=== PATIENT | female | born 1965 | race Hispanic/Latino ===

== ENCOUNTER 2018-11-17 11:02 | Outpatient (CLI) | payer OTHER ==
--- NOTE | 2018-11-17 11:40 | MMO ---
Bilateral MAMMO Bilat Screen [facility]. CLINICAL HISTORY: Patient is 53 years old and is seen for screening. The patient has no family history of breast cancer. The patient has no personal history of cancer. The patient has a history of right cyst aspiration in September, - benign. VIEWS: The views performed were: bilateral craniocaudal and bilateral mediolateral oblique. FILMS COMPARED: The present examination has been compared to prior imaging studies performed at [facility] on 11/12/2006, 08/05/2012, 08/10/2012, 04/12/2014 and 04/20/2014. This study has been interpreted with the assistance of computer-aided detection. MAMMOGRAM FINDINGS: There are scattered fibroglandular densities. There are no suspicious masses, suspicious calcifications, or new areas of architectural distortion. IMPRESSION: THERE IS NO MAMMOGRAPHIC EVIDENCE OF MALIGNANCY. A ROUTINE FOLLOW-UP MAMMOGRAM IN 1 YEAR IS RECOMMENDED. ACR BI-RADS Category 1 - Negative MAMMOGRAPHY NOTE: 1. A negative mammogram report should not delay a biopsy if a dominant of clinically suspicious mass is present. 2. Approximately 10% to 15% of breast cancers are not detected by mammography. 3. Adenosis and dense breasts may obscure an underlying neoplasm.
== END 2018-11-17 11:03 | disposition home or self-care (01) ==
LOC: SCSMAMMO 11:02
PROVIDERS: ATTEND Family Medicine
DX: Z12.31 Encounter for screening mammogram for malignant neoplasm of breast (principal)
CPT/HCPCS: 77067

== ENCOUNTER 2019-01-04 06:57 | Outpatient (CLI) | payer OTHER ==
--- NOTE | 2019-01-04 07:43 | ULT ---
EXAM: Carotid ultrasound HISTORY: Migraine headaches COMPARISON: None TECHNIQUE: Multiplanar grayscale and color Doppler images were obtained in a carotid ultrasound. Spec tral analysis of the Doppler waveforms were performed. FINDINGS: No significant plaque is visualized in either internal carotid artery. No significant plaque is seen in either common carotid artery. The Doppler waveforms are normal in the visualized vessels. Peak systolic velocity in the right internal carotid artery 92 cm/s. Peak systolic velocity in the right common carotid artery 113 cm/s. The right ICA/CCA ratio is 0.8. Peak systolic velocity in the left internal carotid artery 97 cm/s. Peak systolic velocity in the left common carotid artery 104 cm/s. The left ICA/CCA ratio is 0.9. Both vertebral arteries demonstrate antegrade flow without focal stenosis IMPRESSION: No evidence of hemodynamically significant stenosis.
--- NOTE | 2019-01-04 08:42 | MRI ---
MRI BRAIN WITH AND WITHOUT CONTRAST: DATE: 01/04/2019 HISTORY: 53-year-old female with intracranial arteriovenous malformation Q 27.30 COMPARISON: 12/04/2010 TECHNIQUE: Multiplanar, multisequence MRI of the brain performed pre- and post-IV injection of gadolinium based contrast agent. FINDINGS: There has been no significant interval change in the size of the region of clustered abnormal tiny bl ood vessels centered near the superior edge of the left sylvian fissure, measuring approximately 2.5 x 2 x 2 cm. There are dilated abnormal large blood vessels associated with this, including mildly dilated feeding artery which is a branch of the left middle cerebral artery, and dilated, strongly enhancing draining veins. There is no gliosis associated with this. There is no hemosiderin stain in the brain parenchyma around this AVM. There is no restricted diffusion. No other abnormal intra-axial parenchymal enhancement. No intra-axi al signal abnormality. No mass effect, midline shift, or extra-axial fluid collection. Ventricles are normal in size and configuration. No interval change overall. IMPRESSION: 1) left cerebral arteriovenous malformation. 2) no signs of recent or remote hemorrhage. 3) no interval change overall.
== END 2019-01-04 06:58 | disposition home or self-care (01) ==
LOC: SCSULT 06:57
PROVIDERS: ATTEND Psychiatry & Neurology Neurology
DX: Q28.2 Arteriovenous malformation of cerebral vessels (principal)
CPT/HCPCS: 70553; 93880

== ENCOUNTER 2019-12-27 08:28 | Outpatient (CLI) | payer OTHER ==
--- NOTE | 2019-12-27 09:18 | MMO ---
Bilateral MAMMO Bilat Diag [facility]. CLINICAL HISTORY: Patient is 54 years old and is seen for diagnostic exam,lump or thickening and pain in the right breast. The patient has no family history of breast cancer. The patient has no personal history of cancer. The patient has a history of right cyst aspiration in September, - benign. VIEWS: The views performed were: bilateral craniocaudal with tomosynthesis; bilateral mediolateral oblique with tomosynthesis; and bilateral mediolateral with tomosynthesis. FILMS COMPARED: The present examination has been compared to prior imaging studies performed at [facility] on 11/17/2018, and at [facility] on 04/12/2014, 04/20/2014 and 12/27/2019. This study has been interpreted with the assistance of computer-aided detection. MAMMOGRAM FINDINGS: There are scattered fibroglandular densities. Ultrasound of the palpable finding in the right upper outer breast shows no abnorrmality.. There are no suspicious masses, suspicious calcifications, or new areas of architectural distortion. IMPRESSION: THERE IS NO MAMMOGRAPHIC EVIDENCE OF MALIGNANCY. A ROUTINE FOLLOW-UP MAMMOGRAM IN 1 YEAR IS RECOMMENDED. THE RESULTS OF THIS EXAM WERE SENT TO THE PATIENT. ACR BI-RADS Category 2 - Benign finding MAMMOGRAPHY NOTE: 1. A negative mammogram report should not delay a biopsy if a dominant of clinically suspicious mass is present. 2. Approximately 10% to 15% of breast cancers are not detected by mammography. 3. Adenosis and dense breasts may obscure an underlying neoplasm. Reported by: ELIZABETH VINSON MD Electonically Signed: [id number]
--- NOTE | 2019-12-27 10:22 | ULT ---
RIGHT BREAST ULTRASOUND: HISTORY: Pain and palpable abnormality in the right upper outer breast. FINDINGS: Sonographic evaluation at the region of palpable concern in the right upper outer breasts demonstrate s no abnormality. Correlation is made with the mammogram of the same date. IMPRESSION: BIRADS category 2 - benign findings. Return to annual mammographic screening. POS: ANISA
== END 2019-12-27 08:29 | disposition home or self-care (01) ==
LOC: BICMAMMO 08:28
PROVIDERS: ATTEND Obstetrics & Gynecology
DX: N63.10 Unspecified lump in the right breast, unspecified quadrant (principal)
CPT/HCPCS: 77066; G0279

== ENCOUNTER 2021-01-02 10:38 | Emergency (ER) | payer OTHER ==
[2021-01-02] MEDS ORDERED: Morphine 4 MG/ML VIAL ONE (12:35)
[2021-01-02] MEDS ORDERED: Ketamine 50 MG/ML (10ML VIAL) ONE (12:51)
== END 2021-01-02 15:30 | disposition home or self-care (01) ==
LOC: ERS 10:38
DX: S52.501A Unspecified fracture of the lower end of right radius, initial encounter for closed fracture (principal); F17.210 Nicotine dependence, cigarettes, uncomplicated; W01.0XXA Fall on same level from slipping, tripping and stumbling without subsequent striking against object, initial encounter
CPT/HCPCS: 25605; 96374; 96375; 99152; J2270

== ENCOUNTER 2021-01-07 10:29 | Day surgery (SDC) | payer OTHER ==
[2021-01-06 14:06] VITALS: BMI 28.3
[2021-01-07] MEDS ORDERED: Midazolam HCl 2 mg/2 ml Vial ONE (11:39)
[2021-01-07] MEDS ORDERED: Fentanyl 100 MCG/2 ML VIAL ONE ×2 (11:39→12:29)
[2021-01-07] MEDS ORDERED: Levofloxacin 500 mg/D5W 100 ml Premix Bag ONE (12:28)
[2021-01-07] MEDS ORDERED: Clindamycin/D5W 900 mg/50 ml Premix Bag ONE (12:28)
[2021-01-07] MEDS ORDERED: SUGAMMADEX SODIUM 200 MG/2 ML VIAL ONE (12:43)
[2021-01-07] MEDS ORDERED: Dexamethasone 20 MG/5 ML VIAL ONE (13:17)
[2021-01-07] MEDS ORDERED: Bupivacaine HCl 0.5%/Epinephrine 1:200,000/PF 30 ml Vial ONE (13:17)
[2021-01-07] MEDS ORDERED: ePHEDrine Sulfate 50 MG/10 ML VIAL ONE (13:17)
[2021-01-07] MEDS ORDERED: PHENYLEPHRINE-NS 100 MCG/ML 10 ML SYRINGE ONE (13:17)
[2021-01-07] MEDS ORDERED: Glycopyrrolate 0.2 MG/ML 5 ML SYRINGE ONE (13:17)
[2021-01-07] MEDS ORDERED: PROPOFOL 200 MG/20 ML VIAL ONE (13:17)
[2021-01-07] MEDS ORDERED: Lidocaine 1% PF 5 ML VIAL ONE (13:17)
[2021-01-07] MEDS ORDERED: Ondansetron PF 4 MG/2 ML Vial ONE (13:17)
== END 2021-01-07 16:20 | disposition home or self-care (01) ==
LOC: SDC 10:29
PROVIDERS: ATTEND Orthopaedic Surgery
PROC: 0PSH04Z Reposition Right Radius with Internal Fixation Device, Open Approach (ICD-10-PCS; principal; 2021-01-07)
DX: S52.501A Unspecified fracture of the lower end of right radius, initial encounter for closed fracture (principal); Z87.891 Personal history of nicotine dependence; Z88.0 Allergy status to penicillin; Z88.1 Allergy status to other antibiotic agents; W19.XXXA Unspecified fall, initial encounter
CPT/HCPCS: 76000; C1713; J1100; J1956; J2250; J2405; J2704; J3010; J3490

== ENCOUNTER 2021-05-05 08:10 | Outpatient (CLI) | payer OTHER | END 2021-05-05 08:11 | disposition home or self-care (01) | LOC: BICMAMMO 08:10 | PROVIDERS: ATTEND Family Medicine | DX: Z12.31 Encounter for screening mammogram for malignant neoplasm of breast (principal); N95.9 Unspecified menopausal and perimenopausal disorder; M85.89 Other specified disorders of bone density and structure, multiple sites | CPT/HCPCS: 77063; 77067; 77080 ==

== ENCOUNTER 2023-01-25 07:48 | Outpatient (CLI) | payer OTHER | END 2023-01-25 07:49 | disposition home or self-care (01) | LOC: BICMAMMO 07:48 | PROVIDERS: ATTEND Family Medicine | DX: Z12.31 Encounter for screening mammogram for malignant neoplasm of breast (principal); Z98.890 Other specified postprocedural states | CPT/HCPCS: 77063; 77067 ==

== ENCOUNTER 2024-06-14 12:05 | Emergency (ER) | payer OTHER ==
[2024-06-14 12:51] LABS: #Basophils 0.06 10x3/uL (0.0-0.2); %Basophils 0.8 % (0.0-1.0); %Eosinophils 2.4 % (0.0-10.0); %Lymphocytes 32.1 % (21.0-51.0); %Monocytes 6.1 % (0.0-10.0); %Neutrophils 58.5 % (42.0-75.0); Hematocrit 39.3 % (36.0-47.0); Hemoglobin 13.6 g/dL (12.0-16.0); Mean Corpuscular HGB CONC 34.6 g/dL (32.0-36.0); Mean Corpuscular Hemoglobin 30.6 pg (27.0-31.0); Mean Corpuscular Volume 88.3 fL (78.0-98.0); Mean Platelet Volume 10.5 fL (7.4-10.4); Platelet Count 290 10x3/uL (130-400); RBC Distribution Width 12.9 % (11.5-14.5); Red Blood Cell (RBC) Count 4.45 mill/uL (4.20-5.40)
[2024-06-14 13:06] LABS: PTT 22.9 sec (22.9-36.1); Prothrombin Time 13.2 sec (12.0-14.7)
[2024-06-14 13:26] LABS: ALT (SGPT) 16 U/L (8-55); AST (SGOT) 28 U/L (5-34); Alkaline Phosphatase 81 U/L (40-110); Anion Gap 14 mmol/L (10-20); BUN (Urea Nitrogen) 17 mg/dL (9.8-20.1); Bilirubin, Total 0.3 mg/dL (0.2-1.2); Calc. Creatinine Clearance 0 mL/min (70-130); Calcium 9.4 mg/dL (7.8-10.44); Carbon Dioxide 21 mmol/L (22-29); Chloride 113 mmol/L (98-107); Estimated GFR 95; Globulin 3.2 g/dL (2.4-3.5); Glucose 98 mg/dL (70-105); Potassium 4.6 mmol/L (3.5-5.1); Protein, Total 7.2 g/dL (6.0-8.3); Sodium 143 mmol/L (136-145)
[2024-06-14] MEDS ORDERED: Aspirin Chewable 81 MG TAB ONE (13:29)
[2024-06-14 14:22] LABS: Bacteria/HPF None Seen HPF (None Seen); Bilirubin Negative (Negative); Blood, Urine Negative (Negative); CAUTI Indications for Culture Dysuria,urgency,freq; Clarity Clear (Clear); Glucose, Urine (Dipstick) Normal (Negative); Ketone, Urine Negative (Negative); Leukocyte Negative Leu/uL (Negative); Nitrite Negative (Negative); Protein, Urine (Dipstick) Negative (Neg-Trace); RBC/HPF 0-3 HPF (0-3); Squamous Epithelial 0-3 HPF (0-3); Urobilinogen Normal mg/dL (Less than 2); WBC/HPF 0-3 HPF (0-3)
[2024-06-14 14:27] LABS: Urine Culture Reflex No No
[2024-06-14] MEDS ORDERED: Metoclopramide HCl 10 MG (2 mL) VIAL ONE (15:57)
[2024-06-14] MEDS ORDERED: diphenhydrAMINE 50 MG/ML VIAL ONE (15:57)
[2024-06-14] MEDS ORDERED: methylPREDNISolone Sod Succ/PF 125 MG/2 ML VIAL ONE (15:57)
[2024-06-14 16:00] LABS: Troponin I Less than 0.010 ng/mL (< 0.028)
== END 2024-06-14 17:00 | disposition home or self-care (01) ==
LOC: ERS 12:05
DX: R51.9 Headache, unspecified (principal); R29.700 NIHSS score 0; F17.210 Nicotine dependence, cigarettes, uncomplicated
CPT/HCPCS: 36415; 36416; 70450; 71045; 80053; 81001; 84484; 85025; 85610; 85730; 93005; 96374; 96375; J1200; J2765; J2919